=== PATIENT | male | born 1985 | race Two or more races ===

== ENCOUNTER 2019-05-05 12:08 | Emergency (ER) | payer OTHER ==
[~2019-05-05] VITALS: Ht 170.2 cm; Wt 57.6 kg
[2019-05-05] MEDS ORDERED: LIDOCAINE 1%-EPI 1:100,000 20 ML VIAL TP ONE (12:30)
[2019-05-05] MEDS ORDERED: LIDOCAINE 1%-EPI 1:100,000 20 ML VIAL ONE (12:38)
[2019-05-05 12:47] VITALS: BP 137/91
--- NOTE | 2019-05-05 12:48 | NUR ---
patient came in to the er c/o forehead abscess 3-4 days. On room air, breathing evenly and unlabored. kept comfortable, will continue to monitor accordingly.
--- NOTE | 2019-05-05 13:20 | NUR ---
ANNA RAMAN AT BEDSIDE FOR HOMELESS DISCHARGE
--- NOTE | 2019-05-05 13:44 | NUR ---
Patient given written and verbal discharge instructions. Patient verbalizes understanding of instructions. Patient is ambulatory with steady gait. Refuses offer of senior living placement. Patient given list of available shelters in surrounding area.
--- NOTE | 2019-05-05 13:45 | NUR ---
Social service consult requested by for homelessness. Per MD notes, pt is a 33-year-old male presented from the streets with complaints of an abscess to his forehead that has been progressively growing over the past 4 days. SU[employer] met with the pt bedside. SUPERVISOR [employer] introduced self and explained her role. Pt is alert and oriented x 4. Pt's mood is congruent. Pt appears disheveled. Pt states he has been homeless for almost a year. Pt was residing with his mother, however he is not allowed to stay there since it is a longterm apartment. Pt receives food stamps and GR. SUPER[employer] informed pt about the winter residential program and pt is interested. Pt denies alcohol use but uses methamphetamines and heroin daily. Pt smokes 1 to 2 cigarettes per day. Pt reports to have had services in the past with [facility] and is planning to reinstate services through them again. SUPER[employer] encouraged pt to reach out to [facility] as well. Pt denies suicidal and homicidal ideations and visual/auditory hallucinations at this time. Pt is ambulatory with a steady gait and independent with his ADLS. SUPER[employer]OR [employer] provided active listening and supportive counseling to the pt. Pt was provided with homeless packet with the following information: [facility] [id number] [place] [facility] program list, [facility] located at [address] ; [facility] [place], [address] ; [facility] [place], [address] [place] [place] ; [facility] Homeless Resource Directory which includes food stamps, transitional housing, showers and hot meals etc; Mental Health clinics such as [facility] ; [facility] ; Health clinics;[facility] and Alcohol treatment centers such as [facility] [place], ; [facility] Substance Abuse Hotline and [facility] . Homeless Patient waiver form was signed by the pt. and placed in pt's chart. TAP card was provided. SUPER[employer]OR [employer] updated LEMUEL Vuong and BELIA Dias with pt's discharge plan.
== END 2019-05-05 13:43 | disposition home or self-care (01) ==
LOC: ER 12:15
DX: L02.01 Cutaneous abscess of face (principal); Z59.0 Homelessness
CPT/HCPCS: 10060; 99283; A6403; J3490

== ENCOUNTER 2020-06-19 18:27 | Emergency (ER) | payer OTHER ==
[~2020-06-19] VITALS: Ht 167.6 cm; Wt 54.4 kg
[2020-06-19 18:36] VITALS: BP 135/96
[2020-06-19] MEDS ORDERED: CEPH500T PO (18:49)
[2020-06-19] MEDS ORDERED: SULF1TAB48 PO (18:49)
--- NOTE | 2020-06-19 18:53 | NUR ---
Patient discharged to home in stable condition. Written and verbal after care instructions given. Patient verbalizes understanding of instruction. Pt ambulatory with a steady gait
--- NOTE | 2020-06-19 18:56 | NUR ---
PT DID NOT WANT TO SIGN THE HOMELESS WAIVER. HE STATES THAT HE IS STAYING WITH HIS MOM
== END 2020-06-19 18:57 | disposition home or self-care (01) ==
LOC: ER 18:30
DX: L03.116 Cellulitis of left lower limb (principal); F10.10 Alcohol abuse, uncomplicated; F17.200 Nicotine dependence, unspecified, uncomplicated; Y90.9 Presence of alcohol in blood, level not specified; Z59.0 Homelessness

== ENCOUNTER 2020-09-04 15:12 | Emergency (ER) | payer OTHER ==
[~2020-09-04] VITALS: Ht 167.6 cm; Wt 59.0 kg
[~2020-09-04 15:12] MED LIST: CEPH500T PO; SULF1TAB48 PO
[2020-09-04 15:55] VITALS: BP 129/85
--- NOTE | 2020-09-04 16:00 | NUR ---
BIB SELF C/O BILATERAL LEG ABSCESS "I JUST NEED ANTIBIOTIC PRESCRIPTION". RATES PAIN 09/02. WILL CONTINUE TO MONITOR THE PATIENT.
[2020-09-04] MEDS ORDERED: CEPH500C2 PO (16:21)
[2020-09-04] MEDS ORDERED: MUPI22OI2 TP (16:21)
[2020-09-04] MEDS ORDERED: SULF-10 PO (16:21)
--- NOTE | 2020-09-04 16:36 | NUR ---
Patient given written and verbal discharge instructions. Patient verbalizes understanding of instructions. Patient is ambulatory with steady gait. Refuses offer of custodial placement. Patient given list of available shelters in surrounding area.
== END 2020-09-04 16:37 | disposition home or self-care (01) ==
LOC: ER 15:16
DX: A49.02 Methicillin resistant Staphylococcus aureus infection, unspecified site (principal); F11.20 Opioid dependence, uncomplicated; Z59.0 Homelessness; Z72.821 Inadequate sleep hygiene; J45.909 Unspecified asthma, uncomplicated; F17.200 Nicotine dependence, unspecified, uncomplicated; Z79.899 Other long term (current) drug therapy

== ENCOUNTER 2021-02-26 13:00 | Emergency (ER) | payer OTHER ==
[~2021-02-26] VITALS: Ht 167.6 cm; Wt 59.0 kg
[~2021-02-26 13:00] MED LIST changes: +CEPH500C2 PO; +MUPI22OI2 TP; +SULF-10 PO
[2021-02-26 13:15] VITALS: BP 150/93
[2021-02-26] MEDS ORDERED: IPRATROPIUM NEB FS 0.5 MG/2.5 ML AMPUL.NEB ONE (13:42)
[2021-02-26] MEDS ORDERED: ALBUTEROL FS 2.5 MG/3 ML VIAL.NEB ONE (13:42)
[2021-02-26] MEDS ORDERED: ALBUTEROL FS 2.5 MG/3 ML VIAL.NEB CONTNEB ONE (14:00)
[2021-02-26] MEDS ORDERED: predniSONE 20 MG TABLET PO ONE (14:00)
[2021-02-26] MEDS ORDERED: IPRATROPIUM NEB FS 0.5 MG/2.5 ML AMPUL.NEB NEB ONE (14:00)
[2021-02-26] MEDS ORDERED: predniSONE 20 MG TABLET ONE (14:00)
--- NOTE | 2021-02-26 14:01 | NUR ---
XRAY AT BEDSIDE
--- NOTE | 2021-02-26 14:01 | NUR ---
CARD READER AT BEDSIDE
[2021-02-26] MEDS ORDERED: PRED20TA PO (14:54)
[2021-02-26] MEDS ORDERED: ALBU18HF2 INH (14:54)
--- NOTE | 2021-02-26 15:27 | NUR ---
Patient discharged to home in stable condition. Written and verbal after care instructions given. Patient verbalizes understanding of instruction.
== END 2021-02-26 15:27 | disposition home or self-care (01) ==
LOC: ER 13:04
DX: J06.9 Acute upper respiratory infection, unspecified (principal); J45.909 Unspecified asthma, uncomplicated; Z20.822 Contact with and (suspected) exposure to COVID-19; R91.8 Other nonspecific abnormal finding of lung field; Z59.01 Sheltered homelessness; F17.200 Nicotine dependence, unspecified, uncomplicated
CPT/HCPCS: 71045; 94640; 99284; C9803; J7512; U0003

== ENCOUNTER 2024-08-17 00:48 | Emergency (ER) | payer OTHER ==
[~2024-08-17 00:48] MED LIST changes: +ALBU18HF2 INH; +PRED20TA PO
== END 2024-08-17 02:43 | disposition left against medical advice (07) ==
LOC: ER 00:52
DX: K08.89 Other specified disorders of teeth and supporting structures (principal); Z53.21 Procedure and treatment not carried out due to patient leaving prior to being seen by health care provider

== ENCOUNTER 2024-10-27 04:35 | Emergency (ER) | payer OTHER | END 2024-10-27 05:41 | disposition left against medical advice (07) | LOC: ER 04:39 | DX: R39.198 Other difficulties with micturition (principal); Z53.21 Procedure and treatment not carried out due to patient leaving prior to being seen by health care provider ==

== ENCOUNTER 2024-10-30 23:23 | Emergency (ER) | payer OTHER ==
[~2024-10-30] VITALS: Ht 167.6 cm; Wt 61.2 kg
[2024-10-30 23:49] VITALS: BP 126/98; TEMP 98.6; O2SAT 98
[2024-10-31] MEDS ORDERED: AMOX/CLAVULANATE 875 MG TABLET ONE (00:40)
[2024-10-31] MEDS: AMOX/CLAVULANATE 875 MG TABLET PO ONE (00:41)
[2024-10-31] MEDS ORDERED: AMOX-430 PO (00:56)
[2024-10-31] MEDS ORDERED: OFLO5DRO RIGHTEYE (00:56)
== END 2024-10-31 01:28 | disposition home or self-care (01) ==
LOC: ER 23:30
DX: H10.9 Unspecified conjunctivitis (principal); F17.200 Nicotine dependence, unspecified, uncomplicated; J45.909 Unspecified asthma, uncomplicated; Z59.00 Homelessness unspecified; Z79.52 Long term (current) use of systemic steroids; Z79.899 Other long term (current) drug therapy

== ENCOUNTER 2024-12-03 21:21 | Emergency (ER) | payer OTHER ==
[~2024-12-03] VITALS: Ht 167.6 cm; Wt 59.0 kg
[~2024-12-03 21:21] MED LIST changes: +AMOX-430 PO; +OFLO5DRO RIGHTEYE
[2024-12-04 01:00] VITALS: BP 134/70; TEMP 98; O2SAT 99
[2024-12-06 01:07] LABS: CHLAMYDIA TRACHOMATIS NAA Negative (Negative); NEISSERIA GONORRHOEAE NAA Negative (Negative)
== END 2024-12-04 01:02 | disposition home or self-care (01) ==
LOC: ER 21:23
DX: Z11.3 Encounter for screening for infections with a predominantly sexual mode of transmission (principal); F17.200 Nicotine dependence, unspecified, uncomplicated; J45.909 Unspecified asthma, uncomplicated; Z59.00 Homelessness unspecified; Z79.52 Long term (current) use of systemic steroids; Z87.2 Personal history of diseases of the skin and subcutaneous tissue
CPT/HCPCS: 87491; 87591

== ENCOUNTER 2025-01-14 08:11 | Emergency (ER) | payer OTHER ==
[~2025-01-14] VITALS: Ht 167.6 cm; Wt 54.4 kg
[2025-01-14 08:14] VITALS: BP 121/61; TEMP 98
[2025-01-14] MEDS ORDERED: [UNRECOGNIZED DRUG - CODE] TP (08:19)
[2025-01-14] MEDS ORDERED: PERM60CR4 TP (08:19)
[2025-01-14] MEDS ORDERED: BENZ5.1G TOP (08:20)
[2025-01-14] MEDS ORDERED: CHLO473M2 MM (08:20)
[2025-01-14 08:23] VITALS: O2SAT 97
== END 2025-01-14 08:24 | disposition home or self-care (01) ==
LOC: ER 08:19
DX: K08.89 Other specified disorders of teeth and supporting structures (principal); J45.909 Unspecified asthma, uncomplicated; G89.29 Other chronic pain; F17.200 Nicotine dependence, unspecified, uncomplicated; B85.2 Pediculosis, unspecified; Z59.00 Homelessness unspecified; Z79.52 Long term (current) use of systemic steroids